=== PATIENT | female | born 1955 | race Caucasian/White ===

== ENCOUNTER 2022-05-08 00:28 | Emergency (ER) | payer OTHER ==
[2022-05-08 00:39] VITALS: BP 130/83; PULSE 100; RESP 18; TEMP 98.8; BMI 25.0
[2022-05-08] MEDS ORDERED: ONDANSETRON 4 MG/2 ML VIAL IVPB ONE (00:49)
[2022-05-08] MEDS ORDERED: SODIUM CHLORIDE 1,000 ML IV ONE ×2 (00:49→00:50)
[2022-05-08] MEDS ORDERED: ONDANSETRON 4 MG/2 ML VIAL ONE (00:54)
[2022-05-08 02:42] LABS: CALCIUM 9.6 mg/dL (8.5-10.1)
[2022-05-08 02:43] LABS: BLOOD UREA NITROGEN 23.4 mg/dL (7-18)
[2022-05-08 02:46] LABS: CREATININE 1.1 mg/dL (0.55-1.3)
[2022-05-08 02:47] LABS: BILIRUBIN,TOTAL 0.6 mg/dL (0.2-1); TOT PROT 7.7 g/dl (6.4-8.2)
[2022-05-08 03:28] LABS: HEMATOCRIT 41.7 % (32.4-45.2); HEMOGLOBIN 13.4 GM/dL (10.7-15.3); MCH 28.6 pg (25.7-33.7); MCHC 32.1 g/dl (32.0-36.0); MEAN CELL VOLUME 89.2 fl (80-96); MEAN PLT VOLUME 8.9 fl (7.5-11.1); PLATELET COUNT 342 10^3/uL (134-434); RBC 4.68 M/mm3 (3.60-5.2); RDW 14.4 % (11.6-15.6); WHITE BLOOD COUNT 10.6 K/mm3 (4.0-10.0)
== END 2022-05-08 04:24 | disposition home or self-care (01) ==
LOC: FER 00:28
PROC: 3E033GC Introduction of Other Therapeutic Substance into Peripheral Vein, Percutaneous Approach (ICD-10-PCS; principal; 2022-05-08)
DX: R11.2 Nausea with vomiting, unspecified (principal); R19.7 Diarrhea, unspecified
CPT/HCPCS: 36415; 80053; 85027; 99284-25